=== PATIENT | male | born 1945 | race Caucasian/White ===

== ENCOUNTER 2024-02-18 14:00 | Outpatient (RCR) | payer OTHER, SELFPAY | END 2024-02-20 23:59 | disposition home or self-care (01) | LOC: PRC 14:00 | PROVIDERS: PCP Internal Medicine Geriatric Medicine; Visit Provider Internal Medicine | DX: J43.9 Emphysema, unspecified (principal) | CPT/HCPCS: 94626 ==

== ENCOUNTER 2024-03-22 14:00 | Outpatient (RCR) | payer OTHER, SELFPAY | END 2024-03-22 23:59 | disposition home or self-care (01) | LOC: PRC 14:00 | PROVIDERS: PCP Internal Medicine Geriatric Medicine; Visit Provider Internal Medicine Critical Care Medicine | DX: J43.9 Emphysema, unspecified (principal) | CPT/HCPCS: 94626 ==

== ENCOUNTER 2025-04-23 01:32 | Emergency (ER) | payer OTHER, MEDICARE, SELFPAY ==
[2025-04-23] VITALS (60 sets, daily range): BP systolic 120–176; BP diastolic 63–124; PULSE 82–102; RESP 22–41; O2SAT 89–100
--- NOTE | 2025-04-23 01:30 | RT.EKG_ITS ---
APPROVED REPORT Exam: Resting ECG Reason for Exam: SOB Patient Location: E HR:83 bpm ECG Measurements Heart Rate 83 AXIS OH 187 P 53 QRSd 95 QRS 49 QT 365 T 2 QTc 430 Conclusion Sinus rhythm...normal P axis, V-rate 60- 99 Repol abnrm suggests ischemia, anterolateral...ST dep, T neg, I aVL V2-V6 I have reviewed and interpreted ECG and agree with software generated interpretation.
--- NOTE | 2025-04-23 01:40 | W.ED.GENAD ---
Discharge Plan Disposition Patient Disposition: Transfer-Acute Inpatient Care Specific Acute Inpt Facility: Other Condition: Stable Discharge Details Clinical Impression: Bilateral pulmonary embolism Primary Care Provider: Quyen Doshi ED Provider: Onel Sanz and New Rx's Prescriptions: No Action acetaminophen 500 mg tablet 500 mg PO TID PRN allopurinol 100 mg tablet 100 mg PO DAILY calcium carbonate-vitamin D3 500 mg-5 mcg (200 unit) tablet 2 tab PO DAILY carboxymethylcellulose sodium 0.5 % drops 1 drp ophthalmic (eye) QID PRN folic acid 0.8 mg capsule 0.4 mg PO DAILY gabapentin 300 mg capsule See Rx Instructions PO DIRECTED Rx Instructions: orally as directed; take 2 caps by mouth every morning and take 1 cap every evening to prevent seizures or pain. lorazepam 0.5 mg tablet 0.5 mg PO DAILY PRN losartan 25 mg tablet 25 mg PO DAILY magnesium oxide 400 mg magnesium tablet 400 mg PO DAILY meclizine 25 mg tablet,chewable 37.5 mg PO DAILY PRN omeprazole 20 mg capsule,delayed release(DR/EC) 20 mg PO DAILY tramadol 50 mg tablet 50 mg PO TID PRN Rx Instructions: Take one tablet by mouth three times a day for pain as needed take 1/2 to 1 tablet as directed atorvastatin 20 mg tablet 20 mg PO QHS HPI General Mode of arrival: wheelchair. Date/Time Provider Initiated Documentation: 04/23/25 01:40. Limitations to Documentation: no limitations. Information obtained by: patient and RN notes reviewed. HPI Narrative: Patient presents to ED with upper chest pain and shortness of breath. Patient was sleeping and woke up at about 11 PM with symptoms. He has had a deep cough but has not been experiencing pain or shortness of breath. Pain does not radiate into his back, neck, shoulders. It is worse with breathing or moving his upper extremities. He denies any abdominal pain, nausea, vomiting. Does have pulmonary problems but denies any type of heart disease that he is aware of. Typically gets all of his care at the [place] but because of the pain and shortness of breath presented to the closest ED which is . Related Data Home Medications ?Medication ?Instructions ?Recorded ?Confirmed acetaminophen 500 mg tablet 500 mg PO TID PRN 09/10/23 04/23/25 allopurinol 100 mg tablet 100 mg PO DAILY 09/10/23 04/23/25 atorvastatin 20 mg tablet 20 mg PO QHS 09/10/23 04/23/25 calcium 500 mg (as 2 tab PO DAILY 09/10/23 04/23/25 carbonate)-vitamin D3 5 mcg (200 unit) tablet carboxymethylcellulose sodium 0.5 1 drp ophthalmic (eye) QID PRN 09/10/23 04/23/25 % eye drops folic acid 0.8 mg capsule 0.4 mg PO DAILY 09/10/23 04/23/25 gabapentin 300 mg capsule See Rx Instructions PO DIRECTED 09/10/23 04/23/25 lorazepam 0.5 mg tablet 0.5 mg PO DAILY PRN 09/10/23 04/23/25 losartan 25 mg tablet 25 mg PO DAILY 09/10/23 04/23/25 magnesium oxide 400 mg PO DAILY 09/10/23 04/23/25 meclizine 25 mg chewable tablet 37.5 mg PO DAILY PRN 09/10/23 04/23/25 omeprazole 20 mg capsule,delayed 20 mg PO DAILY 09/10/23 04/23/25 release tramadol 50 mg tablet 50 mg PO TID PRN 09/10/23 04/23/25 Allergies Allergy/AdvReac Type Severity Reaction Status Date / Time varicella-zoster virus Allergy Severe Other (See Verified 04/23/25 02:14 glycoprotein E, recombinant Comment) (From Shingrix (PF)) methadone Allergy Unknown Unknown Verified 04/23/25 02:14 zolpidem Allergy Unknown Unknown Verified 04/23/25 02:14 vaccine adjuvant system, AdvReac Severe Other (See Verified 04/23/25 02:14 AS01B liposomal (From Comment) Shingrix (PF)) ionoc contrast media Allergy Unknown Hives Uncoded 04/23/25 02:14 radiological/contrast media Allergy Unknown Hives Uncoded 04/23/25 02:14 Exam Narrative Exam Narrative: Const: WDWN elderly male in NAD. VS per triage. HEENT: NC/AT. Normal facial exam. Neck: Supple. Trachea midline. Lungs: Tachypneic but not in distress. Right lung with rhonchi in the base. Clear breath sounds otherwise. Cor: RRR without murmur. Good radial pulses. GI: Soft/ND/NT. Neuro: A+O x 3. Normal speech, mentation. Cranial nerves II - XII grossly intact. No gross motor or sensory deficit. Ext: Cold, cyanotic hands and nailbeds. Medical Decision Making Patient presented to ED after waking up with upper chest pain and shortness of breath. He is tachypneic but is maintaining saturations and has a normal pulse. He does have cold cyanotic hands. Pain is pleuritic and worse with movement, especially his upper extremity movement. He has not had this previously. His EKG obtained on arrival is sinus rhythm with significant ST changes and T wave inversion in the anterior lateral leads. Unfortunately do not have an old to compare to at this time. I am attempting to get records from the [place]. Must consider potential life threats which include ACS, PE, dissection. Chart here states allergy to IV contrast but in discussing this with the patient he reports that he has been getting IV contrast without issues. Will therefore plan CTA of the chest in addition to laboratory studies including troponins. He was given nitroglycerin and morphine for pain. [facility] segments. Patient's pain did not improve with nitroglycerin. It did improve with morphine. His initial troponin is normal. He does have a white count of 15.4. He has a creatinine of 1.7 with a GFR of 40 with history of CKD. Magnesium quite low at 1.3 so will be repleted. Fluvid is negative. On return from CT he required more morphine for pain control. Subsequently received a call from radiology. Patient is found to have bilateral pulmonary embolus in both upper lobes and right middle lobe. Does have evidence of prior pulmonary hypertension and does have increased RV to LV ratio but given the clot burden thought likely more related to his pulmonary hypertension than the pulmonary embolus. Patient with his chronic kidney disease will be started on heparin drip as opposed to using Lovenox. He will need admission for further studies and management as well as pain control. Since he is a [facility] patient I have placed a call to [place] to determine whether they would like us to keep him here or transfer to them. Discussed with [facility] hospitalist service. Patient will be excepted to the [facility] for further management. He will be transferred by [facility] ambulance as he will be on oxygen and heparin. He has remained stable here, requiring morphine as needed for his pain. Dr. Palumbo accepting physician. Patient has consented to transfer. Medical Records Medical records reviewed: Yes I reviewed the patient's medical records. Medical records narrative: [facility] Imaging Data Radiologic Study: Imaging: CT Scan Radiologist's impression: IMPRESSION: 1. Scattered small and medium-sized pulmonary emboli in the right upper, right middle, and left upper lobes. 2. Enlarged pulmonary trunk and main pulmonary arteries suggesting pulmonary hypertension. 3. Diffuse emphysema. Peripherally distributed fibrotic interstitial pulmonary scarring. 4. Elevated RV/LV ratio of 1.7. Elevation of the RV/LV ratio may result from pre-existing pulmonary hypertension in the setting of chronic fibrotic pulmonary disease. Right heart strain can also produce an elevated RV/LV ratio but is considered less likely given the relatively modest clot burden. Clinical correlation is recommended. Thank you for allowing us to participate in the care of your patient. Dictated and Authenticated by: Sushil Rios MD Lab Data Lab results reviewed: Yes I reviewed the patient's lab results. Lab results narrative: See [facility] ECG Data Attestation: I personally reviewed and interpreted this ECG (s) as follows: Prior ECG tracings: not available for review Interpretation: See EKG/[facility] Critical Care Time Critical Care Time Critical Care Time: Yes Total Critical Care Time: 50 Attestation: Upon my evaluation, this patient had a high probability of imminent or life-threatening deterioration, which required my direct attention, intervention, and personal management. I have personally provided 50 minutes of critical care time exclusive of time spent on separately billable procedures. Time includes monitoring for potential decompensation, ordering of tests and medications, review of laboratory and radiology results, discussion with consultants and documentation . Interventions were performed as documented above in procedures. [facility] All Active Problems (Updated 04/23/25 @ 03:34 by Onel Sanz MD) Bilateral pulmonary embolism (Acute) Menieres disease (Acute) Migraine (Chronic) Atypical chest pain (Acute) Sensorineural hearing loss (Acute) Varicose veins of lower extremity (Acute) GERD (gastroesophageal reflux disease) (Chronic) Anxiety disorder (Acute) Alcohol dependence (Acute) Open division of ligament of ankle (Acute) and or foot chronic pain syndrome Tobacco abuse, in remission (Acute) Ptosis of eyelid (Acute) Tachycardia (Acute) Insomnia (Acute) Osteopenia (Acute) Lower back pain (Acute) Dupuytren contracture (Acute) Chronic diarrhea (Acute) Osteoarthritis (Chronic) Benign familial tremor (Acute) Fractured calcaneus (Acute) Chronic renal impairment (Acute) Multiple nodules of lung (Acute) Shoulder pain (Acute) Sleep apnea, obstructive (Chronic) Medical History Combined pulmonary fibrosis and emphysema (CPFE) Diverticulosis, sigmoid Benign prostatic hyperplasia 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
--- NOTE | 2025-04-23 01:45 | DI.CT_ITS ---
Exam(s) CT CHEST PE CTA EXAM: CT CHEST PE CTA CLINICAL HISTORY: CP, SOB. TECHNIQUE: Imaging Protocol: Axial CT angiography was performed with multi- slice acquisition and multi-planar and/or 3D reconstructions. Lung Computer Aided Detection (CAD) was utilized. CONTRAST MATERIAL: Intravenous: Omnipaque 350 contrast volume:85 mL COMPARISON: No exams were available for comparison FINDINGS: Tracheobronchial tree: Patent where visualized. No bronchiectasis. Pulmonary parenchyma: There is pulmonary fibrosis present. Emphysematous changes are present in the lungs. There is atelectasis seen in the dependent portions of the lungs. There is no focal consolidating infiltrate present. Pulmonary Arteries: There are filling defects seen in branches of the pulmonary artery to the left lingula, right upper lobe and right lower lobe. These are consistent with pulmonary emboli. There is prominence of the pulmonary arteries in main pulmonary trunk suggesting pulmonary artery hypertension. Mediastinum and Katherine: No dominant adenopathy or fluid collection. The esophagus is unremarkable. Visualized thyroid gland: Unremarkable. Pleura: No effusion or pneumothorax. Heart: Mild cardiomegaly. Mild coronary artery calcification is present. The RV to LV ratio is greater than 1 suggesting right heart strain. No pericardial effusion. Aorta: The ascending thoracic aorta measures 4 x 3.6 cm. Atherosclerotic calcification is present. Upper abdomen: There is diverticulosis of the colon. Soft tissues: Unremarkable. Bones: Within normal limits for the patient's age. IMPRESSION: 1. Bilateral pulmonary emboli. 2. The RV to LV ratio is greater than 1. This can be seen with right heart strain. Additionally pulmonary artery hypertension may also cause a RV to LV ratio greater than 1. Please correlate clinically. 3. Dilatation of the main pulmonary artery in the pulmonary trunk which can be seen with pulmonary artery hypertension. 4. The preliminary [facility] report was reviewed. RADIATION DOSE DELIVERED: 162.67mGy.cm Total DLP DATA REPOSITORY: All CT scans at this facility are submitted to the National Radiology Data Registry (NRDR) Dose Index Registry (DIR) with the [employer] ([employer]). RADIATION OPTIMIZATION: All CT scans at this facility use at least one of these dose optimization techniques: automated exposure control; mA and/or kV adjustment per patient size (includes targeted exams where dose is matched to clinical indication); or iterative reconstruction.
[2025-04-23] MEDS: nitroGLYcerin 0.4 MG TAB SL (01:55)
[2025-04-23 02:00] LABS: Abs Immature Grans 0.17 10^3/uL (0.0-0.06); BE (Venous) -4 mmol/L (-2-3); HCO3 (Venous) 22 mmol/L (23-28); HCT 49.3 % (40.0-50.0); HGB 16.6 g/dL (13.5-17.5); Immature Grans % 1.1 %; MCH 33.1 pg (27.0-33.0); MCHC 33.7 % (32.0-36.0); MCV 98 fL (80-95); MPV 9.2 fL (8.0-11.0); O2 Sat (Venous) 31 %; Platelet Count 197 10^3/uL (130-400); RBC 5.02 10^6/uL (4.36-5.78); RDW 13.7 % (11.8-14.1); RDW-SD 49.4 fL; TCO2 (Venous) 19 mmol/L (24-29); WBC 15.40 10^3/uL (4.4-10.8); pCO2 (Venous) 41 mmHg (41-51); pO2 (Venous) 23 mmHg
[2025-04-23] MEDS: MORPHine 4 MG/ML SYR IVP ×4 (02:01→07:30)
[2025-04-23] MEDS: Ondansetron 4 MG/2 ML VIAL IVP (02:10)
[2025-04-23 02:21] LABS: ALT 15 U/L (16-63); AST 14 U/L (15-37); Albumin 4.2 g/dL (3.4-5.0); Alkaline Phosphatase 60 U/L (46-116); Anion Gap 11.8 mmol/L (3-11); BUN 17 mg/dL (7-18); Bilirubin, Total 1.2 mg/dL (0.2-1.0); CO2 23.2 mmol/L (21.0-32.0); Calcium 8.8 mg/dL (8.5-10.1); Chloride 96 mmol/L (98-107); Estimated GFR 40.25 (mL/min/1.73m2); Glucose 122 mg/dL (74-106); Magnesium 1.3 mg/dL (1.8-2.4); Potassium 4.2 mmol/L (3.5-5.1); Sodium 131 mmol/L (136-145); Total Protein 8.5 g/dL (6.4-8.2); Troponin I 22 ng/L (<or=76)
[2025-04-23] MEDS: Omnipaque 350 MG/ML 100 ML BTL IJ (02:31)
[2025-04-23] MEDS: Normal Saline - Diluent 50 ML VIAL IJ (02:31)
[2025-04-23] MEDS: Normal Saline Flush 10 ML SYR IVP (02:32)
[2025-04-23 02:45] LABS: COVID-19 PCR Negative (Negative); RSV PCR Negative (Negative)
[2025-04-23] MEDS: MAGNESIUM SULFATE 2 GM/50 ML BAG IV_INF (02:58)
--- NOTE | 2025-04-23 03:15 | DI.[facility]_ITS ---
Addendum created by Sushil Rios MD on 04/23/2025 3:18:04 AM EDT: This case was discussed personally with JAZMÍN BAILEY at 3:17 AM EDT on 04/23/2025. Initial report created on 04/23/2025 3:15:24 AM EDT: PROCEDURE INFORMATION: Exam: CTA Chest With Contrast Exam date and time: 04/23/2025 2:31 AM Age: 80 years old Clinical indication: Shortness of breath; Sternal or substernal pain; Cp, SOB TECHNIQUE: Imaging protocol: Computed tomographic angiography of the chest with contrast. Exam focused on the arteries. 3D rendering (Not supervised by radiologist): MIP and/or 3D reconstructed images were created by the technologist. Radiation optimization: All CT scans at this facility use at least one of these dose optimization techniques: automated exposure control; mA and/or kV adjustment per patient size (includes targeted exams where dose is matched to clinical indication); or iterative reconstruction. Contrast material: OMNIPAQUE 350; Contrast volume: 85 ml; Contrast route: INTRAVENOUS (IV); COMPARISON: No relevant prior studies available. FINDINGS: Limitations: Imaging obtained at low lung volumes. Pulmonary arteries: Small right middle lobe pulmonary embolism, images 57-63 of series 11. Moderate-sized right middle lobe pulmonary embolism, image 57 of series 11. Small anterior right upper lobe pulmonary embolism, images 37-39 of series 11. Moderate-sized pulmonary embolism in the lingula on images 78-84 of series 11. Enlarged pulmonary trunk and main pulmonary arteries suggesting pulmonary hypertension. Aorta: No thoracic aortic aneurysm or dissection. Thyroid: Thyroid gland partially excluded from view but grossly unremarkable through its visualized portion. Thyroid gland partially excluded from view but grossly unremarkable through its visualized portion. Lungs: Diffuse emphysema. Peripherally distributed reticular and dependent opacities, probably a combination of atelectasis and fibrotic interstitial pulmonary scarring. Pleural spaces: No pleural effusion or pneumothorax. Heart: Normal-sized heart. Trace pericardial fluid. Heart RV/LV ratio: 1.7. Coronary arteries: Coronary artery calcification. Lymph nodes: No pathologically enlarged mediastinal or hilar lymph nodes. Diaphragm: Elevation of the right hemidiaphragm. Bones/joints: Lower ribs partially excluded from view and incompletely evaluated. Otherwise, no acute fracture seen among the bones of the chest. Soft tissues: No gross soft tissue mass or fluid collection seen in the chest wall. No gross soft tissue mass or fluid collection seen in the chest wall. IMPRESSION: 1. Scattered small and medium-sized pulmonary emboli in the right upper, right middle, and left upper lobes. 2. Enlarged pulmonary trunk and main pulmonary arteries suggesting pulmonary hypertension. 3. Diffuse emphysema. Peripherally distributed fibrotic interstitial pulmonary scarring. 4. Elevated RV/LV ratio of 1.7. Elevation of the RV/LV ratio may result from pre-existing pulmonary hypertension in the setting of chronic fibrotic pulmonary disease. Right heart strain can also produce an elevated RV/LV ratio but is considered less likely given the relatively modest clot burden. Clinical correlation is recommended. Dictated and Authenticated by: Sushil Rios MD. Orderin Yvon Sykes MD
[2025-04-23 03:40] LABS: INR 1.0 (0.9-1.1); PTT Activated 26.4 sec (20.6-30.2); Prothrombin Time 10.4 sec (9.1-11.1)
[2025-04-23] MEDS: Heparin in 0.45% NaCl 25,000 UNIT/250 ML BAG 18 UNIT IVINF (03:40)
[2025-04-23 03:43] LABS: Troponin I 18 ng/L (<or=76)
== END 2025-04-23 07:49 | disposition short-term general hospital (02) ==
PROVIDERS: Emergency Provider Emergency Medicine; PCP Internal Medicine Geriatric Medicine
DX: R06.02 Shortness of breath; I26.99 Other pulmonary embolism without acute cor pulmonale; R07.9 Chest pain, unspecified
CPT/HCPCS: 36415; 71275; 80053; 82805; 87637; 93005; 96365; 96366; 96367; 96375; 96376; 99291; 83735; 84484; 85025; 85610; 85730; 93010; J1644; J2270; J2405; J3475; J3490